=== PATIENT | male | born 1965 | race Hispanic/Latino ===

== ENCOUNTER 2022-03-06 16:40 | Inpatient (IN) | payer MEDICARE ==
[2022-03-07 08:18] LABS: Basophils % (Auto) 0.8 % (0.0-1.8); Eosinophils # (Auto) 0.1 K/mm3 (0.0-0.4); Eosinophils % (Auto) 1.5 % (0.0-4.3); Hematocrit 38.3 % (35.5-45.6); Hemoglobin 12.2 gm/dl (11.8-15.2); Lymphocytes # (Auto) 1.8 K/mm3 (1.2-5.4); Mean Corpuscular HGB Conc 32 % (32-34); Mean Corpuscular Volume 83 fl (84-94); Monocytes # (Auto) 0.3 K/mm3 (0.0-0.8); Monocytes % (Auto) 5.6 % (0.0-7.3); Platelet Count 229 K/mm3 (140-440); Red Cell Distribution Width 18.1 % (13.2-15.2)
[2022-03-07] MEDS ORDERED: NON-FORMULARY EACH (Oxycodone Hcl/Acetaminophen [Percocet 7.5/325 Mg] 1 EACH Tablet) PO PRN (08:42)
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
[2022-03-07 08:44] LABS: Alanine Aminotransferase 16 units/L (7-56); Albumin 3.8 g/dL (3.9-5); BUN/Creatinine Ratio 25; Blood Urea Nitrogen 20 mg/dL (9-20); Calcium 8.8 mg/dL (8.4-10.2); Chol/HDL Ratio 1.92 %; HDL Cholesterol 70 mg/dL (40-59); Hemolysis Index 3; LDL Cholesterol,Direct 50 mg/dL (50-130)
[2022-03-07] MEDS ORDERED: oxyCODONE /ACETAMINOPHEN 5-325MG TAB PO PRN (09:00)
[2022-03-07] MEDS ORDERED: oxyCODONE 5 MG TAB PO PRN ×2 (09:00)
[2022-03-07] MEDS: DIVALPROEX DR 125 MG TAB PO SCH ×2 (10:00→22:08)
[2022-03-07] MEDS: clonazePAM 0.5 MG TAB PO SCH ×2 (10:00→22:08)
--- NOTE | 2022-03-07 16:15 | Consultation ---
History of Present Illness - Reason for Consult Consult date: 03/07/22 Medical management - History of Present Illness Patient is a 56-year-old male past medical history of bipolar disorder and polysubstance abuse (methamphetamines, cocaine, and marijuana) who presented to the ED with reported psychotic behavior such as "running in front of cars". The patient currently denies any suicidal ideation, hallucinations, or thoughts of hurting others. The hospitalist service was consulted for medical management. Past History Past Medical History: other (Bipolar disorder; bladder cancer) Past Surgical History: appendectomy, cholecystectomy, Other Social history: single, full code, other (homelessness) Family history: no significant family history Medications and Allergies Allergies Allergy/AdvReac Type Severity Reaction Status Date / Time No Known Allergies Allergy Verified 02/07/22 04:08 Home Medications Medication Instructions Recorded Confirmed Last Taken Type Oxycodone HCl/Acetaminophen 1 tab PO Q4HR PRN 02/07/22 03/07/22 Unknown History [Percocet 7.5/325 mg] Divalproex Dr [Depakote Dr] 125 mg PO BID #60 tablet 02/10/22 03/07/22 Unknown Rx Melatonin [Melatonin 5MG TAB] 5 mg PO QHS PRN #30 tablet 02/10/22 03/07/22 Unknown Rx clonazePAM [KlonoPIN] 0.5 mg PO BID #60 tablet 02/10/22 03/07/22 Unknown Rx Active Meds: Active Medications Clonazepam (Clonazepam 0.5 Mg Tab) 0.5 mg PO BID [facility] Last Admin: 03/07/22 10:00 Dose: 0.5 mg Divalproex Sodium (Divalproex Dr 125 Mg Tab) 125 mg PO BID [facility] Last Admin: 03/07/22 10:00 Dose: 125 mg Melatonin (Melatonin 5 Mg Tab) 5 mg PO QHS PRN PRN Reason: Insomnia Oxycodone HCl (Oxycodone 5 Mg Tab) 2.5 mg PO Q4H PRN PRN Reason: Pain, Moderate (4-6) Oxycodone/Acetaminophen (Oxycodone /Acetaminophen 5-325mg Tab) 1 tab PO Q4H PRN PRN Reason: Pain, Moderate (4-6) Review of Systems All systems: negative Exam - Constitutional Vitals: Temp Pulse Resp BP Pulse Ox 97.8 F 82 17 98/64 98 05/16/22 19:45 03/06/22 19:45 03/06/22 19:45 03/06/22 19:45 03/06/22 19:45 General appearance: Present: no acute distress, well-nourished, disheveled - EENT Eyes: Present: PERRL, EOM intact ENT: hearing intact, clear oral mucosa - Neck Neck: Present: supple, normal ROM - Respiratory Respiratory effort: normal Respiratory: bilateral: CTA - Cardiovascular Rhythm: regular Heart Sounds: Present: S1 & S2 - Extremities Extremities: no ischemia, pulses intact, pulses symmetrical, normal temperature, normal color Peripheral Pulses: within normal limits - Abdominal General gastrointestinal: Present: soft, non-tender, non-distended, normal bowel sounds Male genitourinary: Present: deferred - Rectal Rectal Exam: deferred - Integumentary Integumentary: Present: clear, warm, dry - Musculoskeletal Musculoskeletal: strength equal bilaterally - Psychiatric Psychiatric: appropriate mood/affect, cooperative - Neurologic Neurologic: CNII-XII intact - Allied Health Allied health notes reviewed: nursing Results - Labs CBC & Chem 7: 03/07/22 07:42 03/07/22 07:42 Labs: Abnormal lab results 03/07/22 03/07/22 Range/Units 07:42 07:42 MCV 83 L (84-94) fl MCH 26 L (28-32) pg RDW 18.1 H (13.2-15.2) % Lymph % (Auto) 38.0 H (13.4-35.0) % Albumin 3.8 L (3.9-5) g/dL HDL Cholesterol 70 H (40-59) mg/dL Assessment and Plan #Bipolar disorder Management per primary #Polysubstance dependence -Patient engages in the following substances: Marijuana, cocaine, and methamphetamines -Counseled patient about the importance of cessation of substance abuse. Offered resources to help with quitting. Patient expresses understanding. -Time: +15 mins #Mild protein caloric malnutrition Albumin 3.8 Starting dietary supplementation #Insomnia Continue home melatonin 5 mg nightly #Advanced care planning -Disease education conducted, care plan discussed, diagnoses discussed, prognosis discussed, and patient acknowledges understanding with care plan -Time: +30 min Thank you for this interesting consult. We will continue to follow.
[2022-03-08] MEDS: clonazePAM 0.5 MG TAB PO SCH ×2 (09:08→21:46)
[2022-03-08] MEDS: DIVALPROEX DR 125 MG TAB PO SCH ×2 (09:08→21:46)
--- NOTE | 2022-03-08 14:07 | Progress Note ---
Subjective Date of service: 03/08/22 Subjective Comment: The patient was seen this morning. He reports doing well " I'm resting up." He reports sleep and appetite as good. The patient denies any current suicidal/homicidal ideation and denies hallucinations. No changes made today. REVIEW OF SYSTEMS Constitutional: Negative for weight loss ENT: Negative for stridor Respiratory: Negative for cough or hemoptysis All other systems reviewed and are negative MENTAL STATUS EXAMINATION General Appearance and Behavior: Age appropriate, good hygiene, wearing appropriate clothes, good eye contact, calm, cooperative Cooperation: Participating/engaged, but Guarded Psychomotor Behavior: Psychomotor normal Mood: Calm Affect and affective range: congruent with stated mood Thought Process: Goal directed Thought Content: Reality oriented Speech:Normal Suicidal Ideation: Denies Homicidal Ideation: Denies Hallucinations: Denies Delusions: None elicited Impulse Control: Limited Insight and Judgment: Limited insight and judgment Memory: Limited Attention: attentive Orientation: Alert, oriented Assessment and Plan Bipolar disorder Treatment Plan Patient admitted for inpatient psychiatric evaluation, medication adjustment and close monitoring The patient's behavior, mood, sleep and appetite will be closely monitored. Patient enrolled in individual and group therapeutic sessions and encouraged to attend. Patient provided with a safe and structured environment. Patient's physical health needs will be addressed by the Hospitalist. Hospitalist Consulted Labs including CBC, CMP, Lipid profile and Hemoglobin A1C levels ordered for baseline reference Social Assessment will be completed and the Vessel Manager will work with patient and family to ensure a suitable and safe disposition Medication adjustment will be made as clinically indicated Continue home meds Usual Wellness Religious/Preservation: - Start Trazodone 50 mg po QHS & 50 mg po QHS PRN between 10 PM & 2 AM for insomnia - Start Melatonin 5 mg po QHS to promote circadian rhythm The patient agreed on the treatment plan, understood the risk, benefit, alternative treatment, potential consequence of no treatment, and gave informed consent. Estimated days:6 Post hospital care: primary care provider, psychiatric provider Case staffed with Dr. Low Legal Status: Voluntary Reaction to Hospitalization: Accepting Medications and Allergies Allergies Allergy/AdvReac Type Severity Reaction Status Date / Time No Known Allergies Allergy Verified 02/07/22 04:08 Home Medications Medication Instructions Recorded Confirmed Last Taken Type Oxycodone HCl/Acetaminophen 1 tab PO Q4HR PRN 02/07/22 03/07/22 Unknown History [Percocet 7.5/325 mg] Divalproex Dr [Depakote Dr] 125 mg PO BID #60 tablet 02/10/22 03/07/22 Unknown Rx Melatonin [Melatonin 5MG TAB] 5 mg PO QHS PRN #30 tablet 02/10/22 03/07/22 Unknown Rx clonazePAM [KlonoPIN] 0.5 mg PO BID #60 tablet 02/10/22 03/07/22 Unknown Rx Active Meds: Active Medications Clonazepam (Clonazepam 0.5 Mg Tab) 0.5 mg PO BID [facility] Last Admin: 03/08/22 09:08 Dose: 0.5 mg Divalproex Sodium (Divalproex Dr 125 Mg Tab) 125 mg PO BID [facility] Last Admin: 03/08/22 09:08 Dose: 125 mg Melatonin (Melatonin 5 Mg Tab) 5 mg PO QHS PRN PRN Reason: Insomnia Oxycodone HCl (Oxycodone 5 Mg Tab) 2.5 mg PO Q4H PRN PRN Reason: Pain, Moderate (4-6) Oxycodone/Acetaminophen (Oxycodone /Acetaminophen 5-325mg Tab) 1 tab PO Q4H PRN PRN Reason: Pain, Moderate (4-6) Results - Results Labs/Vitals: Laboratory Last Values WBC 4.8 K/mm3 (4.5-11.0) 03/07/22 07:42 RBC 4.60 M/mm3 (3.65-5.03) 03/07/22 07:42 Hgb 12.2 gm/dl (11.8-15.2) 03/07/22 07:42 Hct 38.3 % (35.5-45.6) 03/07/22 07:42 MCV 83 fl (84-94) L 03/07/22 07:42 MCH 26 pg (28-32) L 03/07/22 07:42 MCHC 32 % (32-34) 03/07/22 07:42 RDW 18.1 % (13.2-15.2) H 03/07/22 07:42 Plt Count 229 K/mm3 (140-440) 03/07/22 07:42 Lymph % (Auto) 38.0 % (13.4-35.0) H 03/07/22 07:42 [place] % (Auto) 5.6 % (0.0-7.3) 03/07/22 07:42 Eos % (Auto) 1.5 % (0.0-4.3) 03/07/22 07:42 Baso % (Auto) 0.8 % (0.0-1.8) 03/07/22 07:42 Lymph # (Auto) 1.8 K/mm3 (1.2-5.4) 03/07/22 07:42 [place] # (Auto) 0.3 K/mm3 (0.0-0.8) 03/07/22 07:42 Eos # (Auto) 0.1 K/mm3 (0.0-0.4) 03/07/22 07:42 Baso # (Auto) 0.0 K/mm3 (0.0-0.1) 03/07/22 07:42 Seg Neutrophils % 54.1 % (40.0-70.0) 03/07/22 07:42 Seg Neutrophils # 2.6 K/mm3 (1.8-7.7) 03/07/22 07:42 Sodium 141 mmol/L (137-145) 03/07/22 07:42 Potassium 3.8 mmol/L (3.6-5.0) 03/07/22 07:42 Chloride 106.5 mmol/L (98-107) 03/07/22 07:42 Carbon Dioxide 24 mmol/L (22-30) 03/07/22 07:42 Anion Gap 14 mmol/L 03/07/22 07:42 BUN 20 mg/dL (9-20) 03/07/22 07:42 Creatinine 0.8 mg/dL (0.8-1.3) 03/07/22 07:42 Estimated GFR > 60 ml/min 03/07/22 07:42 BUN/Creatinine Ratio 25 % 03/07/22 07:42 Glucose 91 mg/dL (75-100) 03/07/22 07:42 Hemoglobin A1c 5.8 % (4-6) 03/07/22 07:42 Calcium 8.8 mg/dL (8.4-10.2) 03/07/22 07:42 Total Bilirubin 0.20 mg/dL (0.1-1.2) 03/07/22 07:42 AST 21 units/L (5-40) 03/07/22 07:42 ALT 16 units/L (7-56) 03/07/22 07:42 Alkaline Phosphatase 59 units/L (35-129) 03/07/22 07:42 Total Protein 6.4 g/dL (6.3-8.2) 03/07/22 07:42 Albumin 3.8 g/dL (3.9-5) L 03/07/22 07:42 Albumin/Globulin Ratio 1.5 % 03/07/22 07:42 Triglycerides 76 mg/dL (2-149) 03/07/22 07:42 Cholesterol 135 mg/dL (50-199) 03/07/22 07:42 LDL Cholesterol Direct 50 mg/dL (50-130) 03/07/22 07:42 HDL Cholesterol 70 mg/dL (40-59) H 03/07/22 07:42 Cholesterol/HDL Ratio 1.92 % 03/07/22 07:42 TSH 1.760 mlU/mL (0.270-4.200) 03/07/22 07:42 Last Vital Signs Temp 97.4 F L 03/08/22 10:00 Pulse 76 03/08/22 10:00 Resp 18 03/08/22 10:00 BP 108/69 03/08/22 10:00 Pulse Ox 98 03/08/22 10:00
--- NOTE | 2022-03-08 15:58 | Progress Note ---
Assessment and Plan Assessment and plan: #Bipolar disorder Management per primary #Polysubstance dependence -Patient engages in the following substances: Marijuana, cocaine, and methamphetamines -Counseled patient about the importance of cessation of substance abuse. Offered resources to help with quitting. Patient expresses understanding. -Time: +15 mins #Mild protein caloric malnutrition Albumin 3.8 Starting dietary supplementation #Insomnia Continue home melatonin 5 mg nightly #Advanced care planning -Disease education conducted, care plan discussed, diagnoses discussed, prognosis discussed, and patient acknowledges understanding with care plan -Time: +30 min Disposition Plan: Continue medical management Total Time Spent with Patient (Minutes): 30 minutes History Interval history: No acute events overnight. Hospitalist Physical - Constitutional Vitals: Temp Pulse Resp BP Pulse Ox 97.4 F L 76 18 108/69 98 03/08/22 10:00 03/08/22 10:00 03/08/22 10:00 03/08/22 10:00 03/08/22 10:00 General appearance: Present: no acute distress, well-nourished, disheveled - EENT Eyes: Present: PERRL, EOM intact ENT: hearing intact, clear oral mucosa - Neck Neck: Present: supple, normal ROM - Respiratory Respiratory effort: normal Respiratory: bilateral: CTA - Cardiovascular Rhythm: regular Heart Sounds: Present: S1 & S2 - Extremities Extremities: no ischemia, pulses intact, pulses symmetrical, No edema, normal temperature, normal color Peripheral Pulses: within normal limits - Abdominal General gastrointestinal: soft, non-tender, non-distended, normal bowel sounds - Integumentary Integumentary: Present: clear, warm, dry - Psychiatric Psychiatric: appropriate mood/affect, cooperative - Neurologic Neurologic: CNII-XII intact - Allied Health Allied health notes reviewed: nursing Results - Labs CBC & Chem 7: 03/07/22 07:42 03/07/22 07:42 Labs: Laboratory Last Values WBC 4.8 K/mm3 (4.5-11.0) 03/07/22 07:42 RBC 4.60 M/mm3 (3.65-5.03) 03/07/22 07:42 Hgb 12.2 gm/dl (11.8-15.2) 03/07/22 07:42 Hct 38.3 % (35.5-45.6) 03/07/22 07:42 MCV 83 fl (84-94) L 03/07/22 07:42 MCH 26 pg (28-32) L 03/07/22 07:42 MCHC 32 % (32-34) 03/07/22 07:42 RDW 18.1 % (13.2-15.2) H 03/07/22 07:42 Plt Count 229 K/mm3 (140-440) 03/07/22 07:42 Lymph % (Auto) 38.0 % (13.4-35.0) H 03/07/22 07:42 [place] % (Auto) 5.6 % (0.0-7.3) 03/07/22 07:42 Eos % (Auto) 1.5 % (0.0-4.3) 03/07/22 07:42 Baso % (Auto) 0.8 % (0.0-1.8) 03/07/22 07:42 Lymph # (Auto) 1.8 K/mm3 (1.2-5.4) 03/07/22 07:42 [place] # (Auto) 0.3 K/mm3 (0.0-0.8) 03/07/22 07:42 Eos # (Auto) 0.1 K/mm3 (0.0-0.4) 03/07/22 07:42 Baso # (Auto) 0.0 K/mm3 (0.0-0.1) 03/07/22 07:42 Seg Neutrophils % 54.1 % (40.0-70.0) 03/07/22 07:42 Seg Neutrophils # 2.6 K/mm3 (1.8-7.7) 03/07/22 07:42 Sodium 141 mmol/L (137-145) 03/07/22 07:42 Potassium 3.8 mmol/L (3.6-5.0) 03/07/22 07:42 Chloride 106.5 mmol/L (98-107) 03/07/22 07:42 Carbon Dioxide 24 mmol/L (22-30) 03/07/22 07:42 Anion Gap 14 mmol/L 03/07/22 07:42 BUN 20 mg/dL (9-20) 03/07/22 07:42 Creatinine 0.8 mg/dL (0.8-1.3) 03/07/22 07:42 Estimated GFR > 60 ml/min 03/07/22 07:42 BUN/Creatinine Ratio 25 % 03/07/22 07:42 Glucose 91 mg/dL (75-100) 03/07/22 07:42 Hemoglobin A1c 5.8 % (4-6) 03/07/22 07:42 Calcium 8.8 mg/dL (8.4-10.2) 03/07/22 07:42 Total Bilirubin 0.20 mg/dL (0.1-1.2) 03/07/22 07:42 AST 21 units/L (5-40) 03/07/22 07:42 ALT 16 units/L (7-56) 03/07/22 07:42 Alkaline Phosphatase 59 units/L (35-129) 03/07/22 07:42 Total Protein 6.4 g/dL (6.3-8.2) 03/07/22 07:42 Albumin 3.8 g/dL (3.9-5) L 03/07/22 07:42 Albumin/Globulin Ratio 1.5 % 03/07/22 07:42 Triglycerides 76 mg/dL (2-149) 03/07/22 07:42 Cholesterol 135 mg/dL (50-199) 03/07/22 07:42 LDL Cholesterol Direct 50 mg/dL (50-130) 03/07/22 07:42 HDL Cholesterol 70 mg/dL (40-59) H 03/07/22 07:42 Cholesterol/HDL Ratio 1.92 % 03/07/22 07:42 TSH 1.760 mlU/mL (0.270-4.200) 03/07/22 07:42 [place]/IV: Voiding Method Toilet Active Medications - Current Medications Current Medications: Generic Name Dose Route Start Last Admin Trade Name Freq PRN Reason Stop Dose Admin Clonazepam 0.5 mg 03/07/22 10:00 03/08/22 09:08 Clonazepam 0.5 Mg Tab PO 0.5 mg BID ADAIR Administration Divalproex Sodium 125 mg 03/07/22 10:00 03/08/22 09:[address] 125 Mg Tab PO 125 mg BID [facility]IR Administration Melatonin 5 mg 03/07/22 22:00 Melatonin 5 Mg Tab PO QHS PRN Insomnia Oxycodone HCl 2.5 mg 03/07/22 09:00 Oxycodone 5 Mg Tab PO Q4H PRN Pain, Moderate (4-6) Oxycodone/Acetaminophen 1 tab 03/07/22 09:00 Oxycodone /Acetaminophen 5-325mg Tab PO Q4H PRN Pain, Moderate (4-6)
[2022-03-08] MEDS: MELATONIN 5 MG TAB PO PRN (21:46)
--- NOTE | 2022-03-09 09:35 | Progress Note ---
Subjective Date of service: 03/09/22 Subjective Comment: 03/09:The patient was seen this morning. He states mood as good; rates depression as 4/10. The patient denies any current suicidal/homicidal ideation and denies hallucinations. No changes made today. 03/08:The patient was seen this morning. He reports doing well " I'm resting up." He reports sleep and appetite as good. The patient denies any current suicidal/homicidal ideation and denies hallucinations. No changes made today. REVIEW OF SYSTEMS Constitutional: Negative for weight loss ENT: Negative for stridor Respiratory: Negative for cough or hemoptysis All other systems reviewed and are negative MENTAL STATUS EXAMINATION General Appearance and Behavior: Age appropriate, good hygiene, wearing appropriate clothes, good eye contact, calm, cooperative Cooperation: Participating/engaged, but Guarded Psychomotor Behavior: Psychomotor normal Mood: Good Affect and affective range: congruent with stated mood Thought Process: Goal directed Thought Content: Reality oriented Speech:Normal Suicidal Ideation: Denies Homicidal Ideation: Denies Hallucinations: Denies Delusions: None elicited Impulse Control: Limited Insight and Judgment: Limited insight and judgment Memory: Limited Attention: attentive Orientation: Alert, oriented Assessment and Plan Bipolar disorder Treatment Plan Patient admitted for inpatient psychiatric evaluation, medication adjustment and close monitoring The patient's behavior, mood, sleep and appetite will be closely monitored. Patient enrolled in individual and group therapeutic sessions and encouraged to attend. Patient provided with a safe and structured environment. Patient's physical health needs will be addressed by the Hospitalist. Hospitalist Consulted Labs including CBC, CMP, Lipid profile and Hemoglobin A1C levels ordered for baseline reference Social Assessment will be completed and the [facility]ner will work with patient and family to ensure a suitable and safe disposition Medication adjustment will be made as clinically indicated Continue home meds [facility]: - Start Trazodone 50 mg po QHS & 50 mg po QHS PRN between 10 PM & 2 AM for insomnia - Start Melatonin 5 mg po QHS to promote circadian rhythm The patient agreed on the treatment plan, understood the risk, benefit, alternative treatment, potential consequence of no treatment, and gave informed consent. Estimated days:5 Post hospital care: primary care provider, psychiatric provider Case staffed with Dr. Low Legal Status: Voluntary Reaction to Hospitalization: Accepting Medications and Allergies Medications and Allergies Allergies Allergy/AdvReac Type Severity Reaction Status Date / Time No Known Allergies Allergy Verified 04/19/22 04:08 Home Medications Medication Instructions Recorded Confirmed Last Taken Type Oxycodone HCl/Acetaminophen 1 tab PO Q4HR PRN 02/07/22 03/07/22 Unknown History [Percocet 7.5/325 mg] Divalproex Dr [Depakote Dr] 125 mg PO BID #60 tablet 02/10/22 03/07/22 Unknown Rx Melatonin [Melatonin 5MG TAB] 5 mg PO QHS PRN #30 tablet 02/10/22 03/07/22 Unknown Rx clonazePAM [KlonoPIN] 0.5 mg PO BID #60 tablet 02/10/22 03/07/22 Unknown Rx Active Meds: Active Medications Clonazepam (Clonazepam 0.5 Mg Tab) 0.5 mg PO BID [facility] Last Admin: 03/08/22 21:46 Dose: 0.5 mg Divalproex Sodium (Divalproex Dr 125 Mg Tab) 125 mg PO BID [facility] Last Admin: 03/08/22 21:46 Dose: 125 mg Melatonin (Melatonin 5 Mg Tab) 5 mg PO QHS PRN PRN Reason: Insomnia Last Admin: 03/08/22 21:46 Dose: 5 mg Oxycodone HCl (Oxycodone 5 Mg Tab) 2.5 mg PO Q4H PRN PRN Reason: Pain, Moderate (4-6) Oxycodone/Acetaminophen (Oxycodone /Acetaminophen 5-325mg Tab) 1 tab PO Q4H PRN PRN Reason: Pain, Moderate (4-6) Last Admin: 03/08/22 21:46 Dose: 1 tab Results - Results Labs/Vitals: Laboratory Last Values WBC 4.8 K/mm3 (4.5-11.0) 03/07/22 07:42 RBC 4.60 M/mm3 (3.65-5.03) 03/07/22 07:42 Hgb 12.2 gm/dl (11.8-15.2) 03/07/22 07:42 Hct 38.3 % (35.5-45.6) 03/07/22 07:42 MCV 83 fl (84-94) L 03/07/22 07:42 MCH 26 pg (28-32) L 03/07/22 07:42 MCHC 32 % (32-34) 03/07/22 07:42 RDW 18.1 % (13.2-15.2) H 03/07/22 07:42 Plt Count 229 K/mm3 (140-440) 03/07/22 07:42 Lymph % (Auto) 38.0 % (13.4-35.0) H 03/07/22 07:42 [place] % (Auto) 5.6 % (0.0-7.3) 03/07/22 07:42 Eos % (Auto) 1.5 % (0.0-4.3) 03/07/22 07:42 Baso % (Auto) 0.8 % (0.0-1.8) 03/07/22 07:42 Lymph # (Auto) 1.8 K/mm3 (1.2-5.4) 03/07/22 07:42 [place] # (Auto) 0.3 K/mm3 (0.0-0.8) 03/07/22 07:42 Eos # (Auto) 0.1 K/mm3 (0.0-0.4) 03/07/22 07:42 Baso # (Auto) 0.0 K/mm3 (0.0-0.1) 03/07/22 07:42 Seg Neutrophils % 54.1 % (40.0-70.0) 03/07/22 07:42 Seg Neutrophils # 2.6 K/mm3 (1.8-7.7) 03/07/22 07:42 Sodium 141 mmol/L (137-145) 03/07/22 07:42 Potassium 3.8 mmol/L (3.6-5.0) 03/07/22 07:42 Chloride 106.5 mmol/L (98-107) 03/07/22 07:42 Carbon Dioxide 24 mmol/L (22-30) 03/07/22 07:42 Anion Gap 14 mmol/L 03/07/22 07:42 BUN 20 mg/dL (9-20) 03/07/22 07:42 Creatinine 0.8 mg/dL (0.8-1.3) 03/07/22 07:42 Estimated GFR > 60 ml/min 03/07/22 07:42 BUN/Creatinine Ratio 25 % 03/07/22 07:42 Glucose 91 mg/dL (75-100) 03/07/22 07:42 Hemoglobin A1c 5.8 % (4-6) 03/07/22 07:42 Calcium 8.8 mg/dL (8.4-10.2) 03/07/22 07:42 Total Bilirubin 0.20 mg/dL (0.1-1.2) 03/07/22 07:42 AST 21 units/L (5-40) 03/07/22 07:42 ALT 16 units/L (7-56) 03/07/22 07:42 Alkaline Phosphatase 59 units/L (35-129) 03/07/22 07:42 Total Protein 6.4 g/dL (6.3-8.2) 03/07/22 07:42 Albumin 3.8 g/dL (3.9-5) L 03/07/22 07:42 Albumin/Globulin Ratio 1.5 % 03/07/22 07:42 Triglycerides 76 mg/dL (2-149) 03/07/22 07:42 Cholesterol 135 mg/dL (50-199) 03/07/22 07:42 LDL Cholesterol Direct 50 mg/dL (50-130) 03/07/22 07:42 HDL Cholesterol 70 mg/dL (40-59) H 03/07/22 07:42 Cholesterol/HDL Ratio 1.92 % 03/07/22 07:42 TSH 1.760 mlU/mL (0.270-4.200) 03/07/22 07:42 Last Vital Signs Temp 97.3 F L 03/08/22 22:00 Pulse 78 03/08/22 22:00 Resp 18 03/08/22 22:00 BP 102/63 03/08/22 22:00 Pulse Ox 96 03/08/22 22:00
[2022-03-09] MEDS: clonazePAM 0.5 MG TAB PO SCH ×2 (10:33→21:25)
[2022-03-09] MEDS: DIVALPROEX DR 125 MG TAB PO SCH ×2 (10:34→21:25)
--- NOTE | 2022-03-09 17:04 | Progress Note ---
Assessment and Plan Assessment and plan: #Bipolar disorder Management per primary #Polysubstance dependence -Patient engages in the following substances: Marijuana, cocaine, and methamphetamines -Counseled patient about the importance of cessation of substance abuse. Offered resources to help with quitting. Patient expresses understanding. -Time: +15 mins #Mild protein caloric malnutrition Albumin 3.8 Starting dietary supplementation #Insomnia Continue home melatonin 5 mg nightly #Advanced care planning -Disease education conducted, care plan discussed, diagnoses discussed, prognosis discussed, and patient acknowledges understanding with care plan -Time: +30 min Disposition Plan: Continue medical management Total Time Spent with Patient (Minutes): 30 minutes 03/09: Continue supportive care as outlined above. Continue to monitor blood pressure discussed with nursing staff. History Interval history: Patient seen and examined notable blood pressure he reports no symptoms at this time. Hospitalist Physical - Physical exam Narrative exam: VITAL SIGNS: Reviewed. GENERAL: The patient appears normally developed, Vital signs as documented. HEAD: No signs of head trauma. EYES: Pupils are equal. Extraocular motions intact. EARS: Hearing grossly intact. MOUTH: Oropharynx is normal. NECK: No adenopathy, no JVD. CHEST: Chest with clear breath sounds bilaterally. No wheezes, rales, or rhonchi. CARDIAC: Regular rate and rhythm. S1 and S2, without murmurs, gallops, or rubs. VASCULAR: No Edema. Peripheral pulses normal and equal in all extremities. ABDOMEN: Soft, non tender and non distended. No rebound or guarding, and no masses palpated. Bowel Sounds normal. MUSCULOSKELETAL: Good range of motion of all major joints. Extremities without clubbing, cyanosis or edema. NEUROLOGIC EXAM: Alert and oriented x 3 No focal sensory or strength deficits. Speech normal. Follows commands. PSYCHIATRIC: Mood normal. SKIN: detail exam as documented in skin assessment - Constitutional Vitals: Temp Pulse Resp BP Pulse Ox 97.2 F L 72 16 98/63 100 03/09/22 08:24 03/09/22 08:24 03/09/22 08:24 03/09/22 08:24 03/09/22 08:24 General appearance: Present: no acute distress, well-nourished, disheveled Results - Labs CBC & Chem 7: 03/07/22 07:42 03/07/22 07:42 Labs: Laboratory Last Values WBC 4.8 K/mm3 (4.5-11.0) 03/07/22 07:42 RBC 4.60 M/mm3 (3.65-5.03) 03/07/22 07:42 Hgb 12.2 gm/dl (11.8-15.2) 03/07/22 07:42 Hct 38.3 % (35.5-45.6) 03/07/22 07:42 MCV 83 fl (84-94) L 03/07/22 07:42 MCH 26 pg (28-32) L 03/07/22 07:42 MCHC 32 % (32-34) 03/07/22 07:42 RDW 18.1 % (13.2-15.2) H 03/07/22 07:42 Plt Count 229 K/mm3 (140-440) 03/07/22 07:42 Lymph % (Auto) 38.0 % (13.4-35.0) H 03/07/22 07:42 [place] % (Auto) 5.6 % (0.0-7.3) 03/07/22 07:42 Eos % (Auto) 1.5 % (0.0-4.3) 03/07/22 07:42 Baso % (Auto) 0.8 % (0.0-1.8) 03/07/22 07:42 Lymph # (Auto) 1.8 K/mm3 (1.2-5.4) 03/07/22 07:42 [place] # (Auto) 0.3 K/mm3 (0.0-0.8) 03/07/22 07:42 Eos # (Auto) 0.1 K/mm3 (0.0-0.4) 03/07/22 07:42 Baso # (Auto) 0.0 K/mm3 (0.0-0.1) 03/07/22 07:42 Seg Neutrophils % 54.1 % (40.0-70.0) 03/07/22 07:42 Seg Neutrophils # 2.6 K/mm3 (1.8-7.7) 03/07/22 07:42 Sodium 141 mmol/L (137-145) 03/07/22 07:42 Potassium 3.8 mmol/L (3.6-5.0) 03/07/22 07:42 Chloride 106.5 mmol/L (98-107) 03/07/22 07:42 Carbon Dioxide 24 mmol/L (22-30) 03/07/22 07:42 Anion Gap 14 mmol/L 03/07/22 07:42 BUN 20 mg/dL (9-20) 03/07/22 07:42 Creatinine 0.8 mg/dL (0.8-1.3) 03/07/22 07:42 Estimated GFR > 60 ml/min 03/07/22 07:42 BUN/Creatinine Ratio 25 % 03/07/22 07:42 Glucose 91 mg/dL (75-100) 03/07/22 07:42 Hemoglobin A1c 5.8 % (4-6) 03/07/22 07:42 Calcium 8.8 mg/dL (8.4-10.2) 03/07/22 07:42 Total Bilirubin 0.20 mg/dL (0.1-1.2) 03/07/22 07:42 AST 21 units/L (5-40) 03/07/22 07:42 ALT 16 units/L (7-56) 03/07/22 07:42 Alkaline Phosphatase 59 units/L (35-129) 03/07/22 07:42 Total Protein 6.4 g/dL (6.3-8.2) 03/07/22 07:42 Albumin 3.8 g/dL (3.9-5) L 03/07/22 07:42 Albumin/Globulin Ratio 1.5 % 03/07/22 07:42 Triglycerides 76 mg/dL (2-149) 03/07/22 07:42 Cholesterol 135 mg/dL (50-199) 03/07/22 07:42 LDL Cholesterol Direct 50 mg/dL (50-130) 03/07/22 07:42 HDL Cholesterol 70 mg/dL (40-59) H 03/07/22 07:42 Cholesterol/HDL Ratio 1.92 % 03/07/22 07:42 TSH 1.760 mlU/mL (0.270-4.200) 03/07/22 07:42 Pacheco/IV: Voiding Method Toilet Active Medications - Current Medications Current Medications: Generic Name Dose Route Start Last Admin Trade Name Freq PRN Reason Stop Dose Admin Clonazepam 0.5 mg 03/07/22 10:00 03/09/22 10:33 Clonazepam 0.5 Mg Tab PO 0.5 mg BID ADAIR Administration Divalproex Sodium 125 mg 03/07/22 10:00 03/09/22 10:[address] 125 Mg Tab PO 125 mg BID ADAIR Administration Melatonin 5 mg 03/07/22 22:00 03/08/22 21:46 Melatonin 5 Mg Tab PO 5 mg QHS PRN Administration Insomnia Oxycodone HCl 2.5 mg 03/07/22 09:00 Oxycodone 5 Mg Tab PO Q4H PRN Pain, Moderate (4-6) Oxycodone/Acetaminophen 1 tab 03/07/22 09:00 03/08/22 21:46 Oxycodone /Acetaminophen 5-325mg Tab PO 1 tab Q4H PRN Administration Pain, Moderate (4-6)
[2022-03-09] MEDS: MELATONIN 5 MG TAB PO PRN (21:25)
--- NOTE | 2022-03-10 08:52 | Discharge Summary ---
Providers - Providers Date of Admission: 03/06/22 22:00 Date of discharge: 03/10/22 Attending physician: ARTIE STARK MD 03/06/22 20:02 Consult to Physician [CONS] Routine Comment: Consulting Provider: STEPHEN AVILA Physician Instructions: Reason For Exam: management of medical problems Primary care physician: APPLE TURNER Hospitalization Reason for admission: agitation Admitting Diagnosis: F31.9 - BIPOLAR DISORDER, UNSPECIFIED Hospital course: The patient was provided inpatient psychiatric treatment with safe and supportive environment, group/individual therapy, psychiatric medication, medication adjustment, adverse effect monitor, medical evaluation, medical treatment, social service assessment, social support meeting, placement assessment and psycho-education. The patients mood, cognition, behavior, motivation, compliance to treatment and appreciation on family/social support are improved and stabilized. At the time of discharge, the patient had no suicidal ideas, no homicidal ideas, no aggressive thoughts, no endangering behavior and no debilitating adverse effects. The patient agreed on the treatment plan, understood the risk, benefit, alternative treatment, potential consequence of no treatment, and gave informed consent. 03/10 The patient was seen today. He says he feels pretty good and is ready to go home. The patient denies SI/HI or hallucinations of any kind. He says he got upset and that's why he was admitted into the hospital. The patient says "I feel pretty good now though." 03/09:The patient was seen this morning. He states mood as good; rates depression as 4/10. The patient denies any current suicidal/homicidal ideation and denies hallucinations. No changes made today. 03/08:The patient was seen this morning. He reports doing well " I'm resting up." He reports sleep and appetite as good. The patient denies any current suicidal/homicidal ideation and denies hallucinations. No changes made today. Disposition: 01 HOME / SELF CARE / HOMELESS Time spent for discharge: 35 Allergies/Adverse Reactions: Allergies No Known Allergies Allergy (Verified 02/07/22 04:08) Vital Signs: Last Vital Signs Temp 97.4 F L 03/10/22 00:07 Pulse 77 03/10/22 00:07 Resp 18 03/10/22 00:07 BP 88/68 03/10/22 00:07 Pulse Ox 97 03/10/22 00:07 Last Lab: Laboratory Last Values WBC 4.8 K/mm3 (4.5-11.0) 03/07/22 07:42 RBC 4.60 M/mm3 (3.65-5.03) 03/07/22 07:42 Hgb 12.2 gm/dl (11.8-15.2) 03/07/22 07:42 Hct 38.3 % (35.5-45.6) 03/07/22 07:42 MCV 83 fl (84-94) L 03/07/22 07:42 MCH 26 pg (28-32) L 03/07/22 07:42 MCHC 32 % (32-34) 03/07/22 07:42 RDW 18.1 % (13.2-15.2) H 03/07/22 07:42 Plt Count 229 K/mm3 (140-440) 03/07/22 07:42 Lymph % (Auto) 38.0 % (13.4-35.0) H 03/07/22 07:42 [place] % (Auto) 5.6 % (0.0-7.3) 03/07/22 07:42 Eos % (Auto) 1.5 % (0.0-4.3) 03/07/22 07:42 Baso % (Auto) 0.8 % (0.0-1.8) 03/07/22 07:42 Lymph # (Auto) 1.8 K/mm3 (1.2-5.4) 03/07/22 07:42 [place] # (Auto) 0.3 K/mm3 (0.0-0.8) 03/07/22 07:42 Eos # (Auto) 0.1 K/mm3 (0.0-0.4) 03/07/22 07:42 Baso # (Auto) 0.0 K/mm3 (0.0-0.1) 03/07/22 07:42 Seg Neutrophils % 54.1 % (40.0-70.0) 03/07/22 07:42 Seg Neutrophils # 2.6 K/mm3 (1.8-7.7) 03/07/22 07:42 Sodium 141 mmol/L (137-145) 03/07/22 07:42 Potassium 3.8 mmol/L (3.6-5.0) 03/07/22 07:42 Chloride 106.5 mmol/L (98-107) 03/07/22 07:42 Carbon Dioxide 24 mmol/L (22-30) 03/07/22 07:42 Anion Gap 14 mmol/L 03/07/22 07:42 BUN 20 mg/dL (9-20) 03/07/22 07:42 Creatinine 0.8 mg/dL (0.8-1.3) 03/07/22 07:42 Estimated GFR > 60 ml/min 03/07/22 07:42 BUN/Creatinine Ratio 25 % 03/07/22 07:42 Glucose 91 mg/dL (75-100) 03/07/22 07:42 Hemoglobin A1c 5.8 % (4-6) 03/07/22 07:42 Calcium 8.8 mg/dL (8.4-10.2) 03/07/22 07:42 Total Bilirubin 0.20 mg/dL (0.1-1.2) 03/07/22 07:42 AST 21 units/L (5-40) 03/07/22 07:42 ALT 16 units/L (7-56) 03/07/22 07:42 Alkaline Phosphatase 59 units/L (35-129) 03/07/22 07:42 Total Protein 6.4 g/dL (6.3-8.2) 03/07/22 07:42 Albumin 3.8 g/dL (3.9-5) L 03/07/22 07:42 Albumin/Globulin Ratio 1.5 % 03/07/22 07:42 Triglycerides 76 mg/dL (2-149) 03/07/22 07:42 Cholesterol 135 mg/dL (50-199) 03/07/22 07:42 LDL Cholesterol Direct 50 mg/dL (50-130) 03/07/22 07:42 HDL Cholesterol 70 mg/dL (40-59) H 03/07/22 07:42 Cholesterol/HDL Ratio 1.92 % 03/07/22 07:42 TSH 1.760 mlU/mL (0.270-4.200) 03/07/22 07:42 Core Measure Documentation - Palliative Care Palliative Care/ Comfort Measures: Not Applicable - Core Measures Any of the following diagnoses?: none Exam - Constitutional Vitals: Temp Pulse Resp BP Pulse Ox 97.4 F L 77 18 88/68 97 03/10/22 00:07 03/10/22 00:07 03/10/22 00:07 03/10/22 00:07 03/10/22 00:07 General appearance: Present: no acute distress - EENT Eyes: Present: PERRL, EOM intact ENT: hearing intact, clear oral mucosa - Neck Neck: Present: supple, normal ROM - Respiratory Respiratory effort: normal Plan Activity: advance as tolerated Weight Bearing Status: Weight Bear as Tolerated Care Plan Goals: Maintain good and stable mental health Plan of Treatment: The patient should be compliant with medications, not to use drugs and not to drink alcohol.The patient understands that if suicidal ideas, homicidal ideas, or any endangering thoughts/behavior arise, they should immediately seek for emergent assistance including but not limited to crisis hot line and emergency room. Follow up with outpatient Psychiatrist and PCP within 7 - 14 days of discharge. Assessment: Bipolar Disorder Follow up with: PRIMARY CARE,MD [Primary Care Provider] - 7 Days Prescriptions: Melatonin [Melatonin 5MG TAB] 5 mg PO QHS PRN #30 tablet PRN Reason: Insomnia Divalproex [Leila Rojas] 125 mg PO BID #60 tablet
[2022-03-10] MEDS: DIVALPROEX DR 125 MG TAB PO SCH ×2 (09:14→21:34)
[2022-03-10] MEDS: clonazePAM 0.5 MG TAB PO SCH ×2 (09:14→21:34)
[2022-03-10 20:53] VITALS: BP 106/63
--- NOTE | 2022-03-10 21:42 | Progress Note ---
Assessment and Plan - Patient Problems (1) Bipolar 1 disorder Current Visit: No Status: Acute Plan to address problem: Continue medical management, cognitive behavioral therapy as clinically indicated. (2) Generalized anxiety disorder Current Visit: No Status: Acute Plan to address problem: Benzodiazepine therapy as clinically indicated, supportive care. (3) Advance care planning Current Visit: No Status: Acute Plan to address problem: Disease education data, care plan discussed, diagnoses discussed, prognosis discussed, patient is full code. Patient knowledges understanding and agreement with care plan, +30 minutes. History Interval history: 56 YO Male with Bipolar Disorder, PSA admitted to My psych unit for psychiatric stabilization. Consult placed by Dr. Pandey for medical management. Patient seen and evaluated in the patient room. Patient resting comfortably. No reported nursing events.. Patient remains at baseline level of cognition and function. Hospitalist Physical - Constitutional Vitals: Temp Pulse Resp BP Pulse Ox 98.3 F 68 18 106/63 98 03/10/22 20:52 03/10/22 20:52 03/10/22 20:52 03/10/22 20:52 03/10/22 20:52 General appearance: Present: no acute distress - EENT Eyes: Present: PERRL ENT: hearing intact - Neck Neck: Present: normal ROM - Respiratory Respiratory effort: normal Respiratory: bilateral: CTA - Cardiovascular Rhythm: regular Heart Sounds: Present: S1 & S2 - Extremities Extremities: no ischemia Peripheral Pulses: within normal limits - Abdominal General gastrointestinal: soft, non-tender, tender - Integumentary Integumentary: Present: clear, dry - Psychiatric Psychiatric: cooperative - Neurologic Neurologic: CNII-XII intact Results - Labs CBC & Chem 7: 03/07/22 07:42 03/07/22 07:42 Labs: Laboratory Last Values WBC 4.8 K/mm3 (4.5-11.0) 03/07/22 07:42 RBC 4.60 M/mm3 (3.65-5.03) 03/07/22 07:42 Hgb 12.2 gm/dl (11.8-15.2) 03/07/22 07:42 Hct 38.3 % (35.5-45.6) 03/07/22 07:42 MCV 83 fl (84-94) L 03/07/22 07:42 MCH 26 pg (28-32) L 03/07/22 07:42 MCHC 32 % (32-34) 03/07/22 07:42 RDW 18.1 % (13.2-15.2) H 03/07/22 07:42 Plt Count 229 K/mm3 (140-440) 03/07/22 07:42 Lymph % (Auto) 38.0 % (13.4-35.0) H 03/07/22 07:42 [place] % (Auto) 5.6 % (0.0-7.3) 03/07/22 07:42 Eos % (Auto) 1.5 % (0.0-4.3) 03/07/22 07:42 Baso % (Auto) 0.8 % (0.0-1.8) 03/07/22 07:42 Lymph # (Auto) 1.8 K/mm3 (1.2-5.4) 03/07/22 07:42 [place] # (Auto) 0.3 K/mm3 (0.0-0.8) 03/07/22 07:42 Eos # (Auto) 0.1 K/mm3 (0.0-0.4) 03/07/22 07:42 Baso # (Auto) 0.0 K/mm3 (0.0-0.1) 03/07/22 07:42 Seg Neutrophils % 54.1 % (40.0-70.0) 03/07/22 07:42 Seg Neutrophils # 2.6 K/mm3 (1.8-7.7) 03/07/22 07:42 Sodium 141 mmol/L (137-145) 03/07/22 07:42 Potassium 3.8 mmol/L (3.6-5.0) 03/07/22 07:42 Chloride 106.5 mmol/L (98-107) 03/07/22 07:42 Carbon Dioxide 24 mmol/L (22-30) 03/07/22 07:42 Anion Gap 14 mmol/L 03/07/22 07:42 BUN 20 mg/dL (9-20) 03/07/22 07:42 Creatinine 0.8 mg/dL (0.8-1.3) 03/07/22 07:42 Estimated GFR > 60 ml/min 03/07/22 07:42 BUN/Creatinine Ratio 25 % 03/07/22 07:42 Glucose 91 mg/dL (75-100) 03/07/22 07:42 Hemoglobin A1c 5.8 % (4-6) 03/07/22 07:42 Calcium 8.8 mg/dL (8.4-10.2) 03/07/22 07:42 Total Bilirubin 0.20 mg/dL (0.1-1.2) 03/07/22 07:42 AST 21 units/L (5-40) 03/07/22 07:42 ALT 16 units/L (7-56) 03/07/22 07:42 Alkaline Phosphatase 59 units/L (35-129) 03/07/22 07:42 Total Protein 6.4 g/dL (6.3-8.2) 03/07/22 07:42 Albumin 3.8 g/dL (3.9-5) L 03/07/22 07:42 Albumin/Globulin Ratio 1.5 % 03/07/22 07:42 Triglycerides 76 mg/dL (2-149) 03/07/22 07:42 Cholesterol 135 mg/dL (50-199) 03/07/22 07:42 LDL Cholesterol Direct 50 mg/dL (50-130) 03/07/22 07:42 HDL Cholesterol 70 mg/dL (40-59) H 03/07/22 07:42 Cholesterol/HDL Ratio 1.92 % 03/07/22 07:42 TSH 1.760 mlU/mL (0.270-4.200) 03/07/22 07:42 Pacheco/IV: Voiding Method Toilet Active Medications - Current Medications Current Medications: Generic Name Dose Route Start Last Admin Trade Name Freq PRN Reason Stop Dose Admin Clonazepam 0.5 mg 03/07/22 10:00 03/10/22 21:34 Clonazepam 0.5 Mg Tab PO 0.5 mg BID ADAIR Administration Divalproex Sodium 125 mg 03/07/22 10:00 03/10/22 21:[address] 125 Mg Tab PO 125 mg BID ADAIR Administration Melatonin 5 mg 03/07/22 22:00 03/09/22 21:25 Melatonin 5 Mg Tab PO 5 mg QHS PRN Administration Insomnia Oxycodone HCl 2.5 mg 03/07/22 09:00 Oxycodone 5 Mg Tab PO Q4H PRN Pain, Moderate (4-6) Oxycodone/Acetaminophen 1 tab 03/07/22 09:00 03/08/22 21:46 Oxycodone /Acetaminophen 5-325mg Tab PO 1 tab Q4H PRN Administration Pain, Moderate (4-6)
--- NOTE | 2022-03-11 08:42 | Progress Note ---
Subjective Date of service: 03/11/22 Medications and Allergies Allergies Allergy/AdvReac Type Severity Reaction Status Date / Time No Known Allergies Allergy Verified 02/07/22 04:08 Home Medications Medication Instructions Recorded Confirmed Last Taken Type Oxycodone HCl/Acetaminophen 1 tab PO Q4HR PRN 02/07/22 03/07/22 Unknown History [Percocet 7.5/325 mg] clonazePAM [KlonoPIN] 0.5 mg PO BID #60 tablet 02/10/22 03/07/[address] [Depakote Dr] 125 mg PO BID #60 tablet 03/10/22 Unknown Rx Melatonin [Melatonin 5MG TAB] 5 mg PO QHS PRN #30 tablet 03/10/22 Unknown Rx Active Meds: Active Medications Clonazepam (Clonazepam 0.5 Mg Tab) 0.5 mg PO BID [facility] Last Admin: 03/10/22 21:34 Dose: 0.5 mg Divalproex Sodium (Divalproex Dr 125 Mg Tab) 125 mg PO BID [facility] Last Admin: 03/10/22 21:34 Dose: 125 mg Melatonin (Melatonin 5 Mg Tab) 5 mg PO QHS PRN PRN Reason: Insomnia Last Admin: 03/09/22 21:25 Dose: 5 mg Oxycodone HCl (Oxycodone 5 Mg Tab) 2.5 mg PO Q4H PRN PRN Reason: Pain, Moderate (4-6) Oxycodone/Acetaminophen (Oxycodone /Acetaminophen 5-325mg Tab) 1 tab PO Q4H PRN PRN Reason: Pain, Moderate (4-6) Last Admin: 03/08/22 21:46 Dose: 1 tab Results - Results Labs/Vitals: Laboratory Last Values WBC 4.8 K/mm3 (4.5-11.0) 03/07/22 07:42 RBC 4.60 M/mm3 (3.65-5.03) 03/07/22 07:42 Hgb 12.2 gm/dl (11.8-15.2) 03/07/22 07:42 Hct 38.3 % (35.5-45.6) 03/07/22 07:42 MCV 83 fl (84-94) L 03/07/22 07:42 MCH 26 pg (28-32) L 03/07/22 07:42 MCHC 32 % (32-34) 03/07/22 07:42 RDW 18.1 % (13.2-15.2) H 03/07/22 07:42 Plt Count 229 K/mm3 (140-440) 03/07/22 07:42 Lymph % (Auto) 38.0 % (13.4-35.0) H 03/07/22 07:42 [place] % (Auto) 5.6 % (0.0-7.3) 03/07/22 07:42 Eos % (Auto) 1.5 % (0.0-4.3) 03/07/22 07:42 Baso % (Auto) 0.8 % (0.0-1.8) 03/07/22 07:42 Lymph # (Auto) 1.8 K/mm3 (1.2-5.4) 03/07/22 07:42 [place] # (Auto) 0.3 K/mm3 (0.0-0.8) 03/07/22 07:42 Eos # (Auto) 0.1 K/mm3 (0.0-0.4) 03/07/22 07:42 Baso # (Auto) 0.0 K/mm3 (0.0-0.1) 03/07/22 07:42 Seg Neutrophils % 54.1 % (40.0-70.0) 03/07/22 07:42 Seg Neutrophils # 2.6 K/mm3 (1.8-7.7) 03/07/22 07:42 Sodium 141 mmol/L (137-145) 03/07/22 07:42 Potassium 3.8 mmol/L (3.6-5.0) 03/07/22 07:42 Chloride 106.5 mmol/L (98-107) 03/07/22 07:42 Carbon Dioxide 24 mmol/L (22-30) 03/07/22 07:42 Anion Gap 14 mmol/L 03/07/22 07:42 BUN 20 mg/dL (9-20) 03/07/22 07:42 Creatinine 0.8 mg/dL (0.8-1.3) 03/07/22 07:42 Estimated GFR > 60 ml/min 03/07/22 07:42 BUN/Creatinine Ratio 25 % 03/07/22 07:42 Glucose 91 mg/dL (75-100) 03/07/22 07:42 Hemoglobin A1c 5.8 % (4-6) 03/07/22 07:42 Calcium 8.8 mg/dL (8.4-10.2) 03/07/22 07:42 Total Bilirubin 0.20 mg/dL (0.1-1.2) 03/07/22 07:42 AST 21 units/L (5-40) 03/07/22 07:42 ALT 16 units/L (7-56) 03/07/22 07:42 Alkaline Phosphatase 59 units/L (35-129) 03/07/22 07:42 Total Protein 6.4 g/dL (6.3-8.2) 03/07/22 07:42 Albumin 3.8 g/dL (3.9-5) L 03/07/22 07:42 Albumin/Globulin Ratio 1.5 % 03/07/22 07:42 Triglycerides 76 mg/dL (2-149) 03/07/22 07:42 Cholesterol 135 mg/dL (50-199) 03/07/22 07:42 LDL Cholesterol Direct 50 mg/dL (50-130) 03/07/22 07:42 HDL Cholesterol 70 mg/dL (40-59) H 03/07/22 07:42 Cholesterol/HDL Ratio 1.92 % 03/07/22 07:42 TSH 1.760 mlU/mL (0.270-4.200) 03/07/22 07:42 Last Vital Signs Temp 98.3 F 03/10/22 20:52 Pulse 68 03/10/22 20:52 Resp 18 03/10/22 20:52 BP 106/63 03/10/22 20:52 Pulse Ox 98 03/10/22 20:52
--- NOTE | 2022-03-11 09:02 | Discharge Summary ---
Providers - Providers Date of Admission: 03/06/22 22:00 Date of discharge: 03/11/22 Attending physician: ARTIE STARK MD 03/06/22 20:02 Consult to Physician [CONS] Routine Comment: Consulting Provider: STEPHEN AVILA Physician Instructions: Reason For Exam: management of medical problems Primary care physician: CLEARANCE CUTTER Hospitalization Reason for admission: agitation Admitting Diagnosis: F31.9 - BIPOLAR DISORDER, UNSPECIFIED Condition: Stable Hospital course: The patient was provided inpatient psychiatric treatment with safe and supportive environment, group/individual therapy, psychiatric medication, medication adjustment, adverse effect monitor, medical evaluation, medical treatment, social service assessment, social support meeting, placement assessment and psycho-education. The patients mood, cognition, behavior, motivation, compliance to treatment and appreciation on family/social support are improved and stabilized. At the time of discharge, the patient had no suicidal ideas, no homicidal ideas, no aggressive thoughts, no endangering behavior and no debilitating adverse effects. The patient agreed on the treatment plan, understood the risk, benefit, alternative treatment, potential consequence of no treatment, and gave informed consent. 03/11 The patient was seen today. His discharge was ordered yesterday but transportation service did not arrive. The patient will discharge today. He denies SI/HI or hallucinations of any kind. He states he feels a lot better and is ready to go home. 03/10 The patient was seen today. He says he feels pretty good and is ready to go home. The patient denies SI/HI or hallucinations of any kind. He says he got upset and that's why he was admitted into the hospital. The patient says "I feel pretty good now though." 03/09:The patient was seen this morning. He states mood as good; rates depression as 4/10. The patient denies any current suicidal/homicidal ideation and denies hallucinations. No changes made today. 03/08:The patient was seen this morning. He reports doing well " I'm resting up." He reports sleep and appetite as good. The patient denies any current suicidal/homicidal ideation and denies hallucinations. No changes made today. Disposition: 01 HOME / SELF CARE / HOMELESS Time spent for discharge: 35 Allergies/Adverse Reactions: Allergies No Known Allergies Allergy (Verified 02/07/22 04:08) Vital Signs: Last Vital Signs Temp 98.3 F 03/10/22 20:52 Pulse 68 03/10/22 20:52 Resp 18 03/10/22 20:52 BP 106/63 03/10/22 20:52 Pulse Ox 98 03/10/22 20:52 Last Lab: Laboratory Last Values WBC 4.8 K/mm3 (4.5-11.0) 03/07/22 07:42 RBC 4.60 M/mm3 (3.65-5.03) 03/07/22 07:42 Hgb 12.2 gm/dl (11.8-15.2) 03/07/22 07:42 Hct 38.3 % (35.5-45.6) 03/07/22 07:42 MCV 83 fl (84-94) L 03/07/22 07:42 MCH 26 pg (28-32) L 03/07/22 07:42 MCHC 32 % (32-34) 03/07/22 07:42 RDW 18.1 % (13.2-15.2) H 03/07/22 07:42 Plt Count 229 K/mm3 (140-440) 03/07/22 07:42 Lymph % (Auto) 38.0 % (13.4-35.0) H 03/07/22 07:42 [place] % (Auto) 5.6 % (0.0-7.3) 03/07/22 07:42 Eos % (Auto) 1.5 % (0.0-4.3) 03/07/22 07:42 Baso % (Auto) 0.8 % (0.0-1.8) 03/07/22 07:42 Lymph # (Auto) 1.8 K/mm3 (1.2-5.4) 03/07/22 07:42 [place] # (Auto) 0.3 K/mm3 (0.0-0.8) 03/07/22 07:42 Eos # (Auto) 0.1 K/mm3 (0.0-0.4) 03/07/22 07:42 Baso # (Auto) 0.0 K/mm3 (0.0-0.1) 03/07/22 07:42 Seg Neutrophils % 54.1 % (40.0-70.0) 03/07/22 07:42 Seg Neutrophils # 2.6 K/mm3 (1.8-7.7) 03/07/22 07:42 Sodium 141 mmol/L (137-145) 03/07/22 07:42 Potassium 3.8 mmol/L (3.6-5.0) 03/07/22 07:42 Chloride 106.5 mmol/L (98-107) 03/07/22 07:42 Carbon Dioxide 24 mmol/L (22-30) 03/07/22 07:42 Anion Gap 14 mmol/L 03/07/22 07:42 BUN 20 mg/dL (9-20) 03/07/22 07:42 Creatinine 0.8 mg/dL (0.8-1.3) 03/07/22 07:42 Estimated GFR > 60 ml/min 03/07/22 07:42 BUN/Creatinine Ratio 25 % 03/07/22 07:42 Glucose 91 mg/dL (75-100) 03/07/22 07:42 Hemoglobin A1c 5.8 % (4-6) 03/07/22 07:42 Calcium 8.8 mg/dL (8.4-10.2) 03/07/22 07:42 Total Bilirubin 0.20 mg/dL (0.1-1.2) 03/07/22 07:42 AST 21 units/L (5-40) 03/07/22 07:42 ALT 16 units/L (7-56) 03/07/22 07:42 Alkaline Phosphatase 59 units/L (35-129) 03/07/22 07:42 Total Protein 6.4 g/dL (6.3-8.2) 03/07/22 07:42 Albumin 3.8 g/dL (3.9-5) L 03/07/22 07:42 Albumin/Globulin Ratio 1.5 % 03/07/22 07:42 Triglycerides 76 mg/dL (2-149) 03/07/22 07:42 Cholesterol 135 mg/dL (50-199) 03/07/22 07:42 LDL Cholesterol Direct 50 mg/dL (50-130) 03/07/22 07:42 HDL Cholesterol 70 mg/dL (40-59) H 03/07/22 07:42 Cholesterol/HDL Ratio 1.92 % 03/07/22 07:42 TSH 1.760 mlU/mL (0.270-4.200) 03/07/22 07:42 Core Measure Documentation - Palliative Care Palliative Care/ Comfort Measures: Not Applicable - Core Measures Any of the following diagnoses?: none Exam - Constitutional Vitals: Temp Pulse Resp BP Pulse Ox 98.3 F 68 18 106/63 98 03/10/22 20:52 03/10/22 20:52 03/10/22 20:52 03/10/22 20:52 03/10/22 20:52 General appearance: Present: no acute distress, mild distress - EENT Eyes: Present: PERRL, EOM intact ENT: hearing intact, clear oral mucosa - Neck Neck: Present: supple - Respiratory Respiratory effort: normal Plan Activity: advance as tolerated Weight Bearing Status: Weight Bear as Tolerated Care Plan Goals: Maintain good and stable mental health Plan of Treatment: The patient should be compliant with medications, not to use drugs and not to drink alcohol.The patient understands that if suicidal ideas, homicidal ideas, or any endangering thoughts/behavior arise, they should immediately seek for emergent assistance including but not limited to crisis hot line and emergency room. Follow up with outpatient Psychiatrist and PCP within 7 - 14 days of discharge. Assessment: Bipolar Disorder Follow up with: PRIMARY CARE, [Primary Care Provider] - 7 Days Prescriptions: Melatonin [Melatonin 5MG TAB] 5 mg PO QHS PRN #30 tablet PRN Reason: Insomnia Divalproex [Leila Rojas] 125 mg PO BID #60 tablet
[2022-03-11] MEDS: DIVALPROEX DR 125 MG TAB PO SCH (09:31)
[2022-03-11] MEDS: clonazePAM 0.5 MG TAB PO SCH (09:31)
== END 2022-03-11 11:40 | disposition home or self-care (01) | DRG 885 ==
LOC: UNDOADMIN 16:40 → 3A 16:40 → 5A 22:00
PROVIDERS: ADMIT Psychiatry & Neurology Psychiatry; ATTEND Psychiatry & Neurology Psychiatry
DX: F31.9 Bipolar disorder, unspecified (principal); E44.1 Mild protein-calorie malnutrition; G47.00 Insomnia, unspecified; F41.1 Generalized anxiety disorder; Z90.49 Acquired absence of other specified parts of digestive tract; Z68.22 Body mass index [BMI] 22.0-22.9, adult
CPT/HCPCS: 36415; 80053; 80061; 83036; 84443; 85025; G0378